=== PATIENT | female | born 1970 | race Caucasian/White ===

== ENCOUNTER 2017-10-23 08:32 | Observation (INO) | payer OTHER ==
[2017-10-23 09:27] LABS: ADD MAN DIFF? NO
[2017-10-23 09:30] LABS: BASOPHILS % 0.4 % (0.0-2.0); EOSINOPHILS # 0.2 10^3/ul (0.0-0.5); EOSINOPHILS % 3.2 % (0.0-7.0); HEMATOCRIT 40.2 % (37.0-47.0); HEMOGLOBIN 13.2 g/dl (12.0-16.0); LYMPHOCYTES # 2.2 10^3/ul (0.8-2.9); LYMPHOCYTES % 38.9 % (15.0-51.0); MEAN CORPUSCULAR HEMOGLOBIN 31.1 pg (29.0-33.0); MEAN CORPUSCULAR HGB CONC 32.8 g/dl (32.0-37.0); MEAN CORPUSCULAR VOLUME 94.8 fl (82.0-101.0); MEAN PLATELET VOLUME 9.5 fl (7.4-10.4); MONOCYTE # 0.3 10^3/ul (0.3-0.9); NEUTROPHIL # 2.9 10^3/ul (1.6-7.5); NEUTROPHILS % 51.3 % (39.0-77.0); PLATELET COUNT 337 10^3/UL (140-415); RED BLOOD COUNT 4.24 10^6/ul (4.20-5.40); RED CELL DISTRIBUTION WIDTH 12.4 % (11.5-14.5)
[2017-10-23 09:30] LABS: WHITE BLOOD COUNT 5.7 10^3/ul (4.8-10.8)
[2017-10-23 09:50] LABS: INR 0.86; PROTIME 11.8 Sec (11.9-14.9); PT RATIO 0.9
[2017-10-23 09:51] LABS: ALBUMIN 4.4 g/dl (3.3-4.9); ANION GAP 14 (8-16); CARBON DIOXIDE 27 mmol/L (21-31); CHLORIDE 106 mmol/L (97-110); GLUCOSE 108 mg/dl (70-220); PARTIAL THROMBOPLASTIN TIME 32.7 Sec (25.0-35.0); PHOSPHORUS 3.9 mg/dl (2.5-4.9)
[2017-10-23 09:54] LABS: BLOOD UREA NITROGEN 17 mg/dl (7-20); CALCIUM 9.3 mg/dl (8.4-10.2); CREATININE 0.75 mg/dl (0.44-1.00); POTASSIUM 4.1 mmol/L (3.5-5.1); SODIUM 143 mmol/L (135-144)
[2017-10-23] MEDS: LACTATED RINGER'S 1,000 ML IV* (10:00)
[2017-10-23] MEDS ORDERED: GLYCOPYRROLATE 0.4 MG INJ (10:47)
[2017-10-23] MEDS ORDERED: MIDAZOLAM 1 MG/ML 2 ML INJ (10:47)
[2017-10-23] MEDS ORDERED: ONDANSETRON 4 MG INJ (10:47)
[2017-10-23] MEDS ORDERED: NEOSTIGMINE 3 MG/3 ML SYRINGE (10:47)
[2017-10-23] MEDS ORDERED: CEFAZOLIN 1 GM INJ (10:47)
[2017-10-23] MEDS ORDERED: ROCURONIUM 50 MG INJ (10:47)
[2017-10-23] MEDS ORDERED: PROPOFOL 20 ML (10:47)
[2017-10-23] MEDS ORDERED: FENTAnyl 50 MCG/ML VIAL (10:47)
[2017-10-23] MEDS ORDERED: DEXAMETHASONE 4 MG/ML 1 ML INJ (10:48)
[2017-10-23] MEDS: CEFAZOLIN 2 GM/50 ML (PMX) 50 ML IVPB ×2 (11:08→18:30)
[2017-10-23] MEDS: LIDOCAINE 1%/EPI 30 ML INJ (11:22)
[2017-10-23] MEDS ORDERED: MIDAZOLAM 1 MG/ML 2 ML INJ IV (11:30)
[2017-10-23] MEDS ORDERED: hydrALAzine 20 MG INJ IV (11:30)
[2017-10-23] MEDS ORDERED: ONDANSETRON 4 MG INJ IV (11:30)
[2017-10-23] MEDS ORDERED: OXYCODONE/ACETAMINOPHEN (5/325) TAB PO ×2 (11:30)
[2017-10-23] MEDS ORDERED: FENTAnyl 50 MCG/ML VIAL IV ×2 (11:30)
[2017-10-23] MEDS ORDERED: MEPERIDINE 25 MG INJ IV (11:30)
[2017-10-23] MEDS ORDERED: ALBUTEROL 0.083% (NEB) 2.5 MG/3 ML AMP HHN (11:30)
[2017-10-23] MEDS ORDERED: DIPHENHYDRAMINE 50 MG INJ IV (11:30)
[2017-10-23] MEDS ORDERED: LABETALOL HCL 20MG INJ IV (11:30)
[2017-10-23] MEDS ORDERED: EPHEDrine SULFATE 50 MG/5 ML SYG IV (11:30)
[2017-10-23] MEDS ORDERED: TRIMETHOBENZAMIDE 100 MG/ML VIAL IM (11:30)
[2017-10-23] MEDS ORDERED: HYDROmorphONE (0.2 MG/ML) 10ML SYG IV ×2 (11:30)
[2017-10-23] MEDS ORDERED: IPRATROPIUM (NEB) 0.5 MG/2.5 ML AMP HHN (11:30)
[2017-10-23] MEDS ORDERED: SUGAMMADEX SODIUM 200 MG/2 ML VIAL IV (12:30)
[2017-10-23] MEDS: HYDROmorphONE (0.2 MG/ML) 10ML SYG IV (13:16)
[2017-10-23] MEDS: FENTAnyl 50 MCG/ML VIAL IV (13:16)
[2017-10-23] MEDS ORDERED: CEFAZOLIN 2 GM/50 ML (PMX) 50 ML IVPB (13:30)
[2017-10-23] MEDS: HYDROCODONE/APAP (5/325) TAB PO (22:55)
[2017-10-24] MEDS: CEFAZOLIN 2 GM/50 ML (PMX) 50 ML IVPB ×2 (03:30→12:16)
[2017-10-24 05:14] LABS: ADD MAN DIFF? NO
[2017-10-24 05:16] LABS: WHITE BLOOD COUNT 10.4 10^3/ul (4.8-10.8)
[2017-10-24 05:16] LABS: HEMATOCRIT 35.3 % (37.0-47.0); HEMOGLOBIN 11.7 g/dl (12.0-16.0); LYMPHOCYTES # 1.5 10^3/ul (0.8-2.9); LYMPHOCYTES % 14.7 % (15.0-51.0); MEAN CORPUSCULAR HEMOGLOBIN 30.9 pg (29.0-33.0); MEAN CORPUSCULAR HGB CONC 33.1 g/dl (32.0-37.0); MEAN CORPUSCULAR VOLUME 93.1 fl (82.0-101.0); MEAN PLATELET VOLUME 9.5 fl (7.4-10.4); MONOCYTE # 0.4 10^3/ul (0.3-0.9); MONOCYTES % 3.6 % (0.0-11.0); NEUTROPHIL # 8.4 10^3/ul (1.6-7.5); NEUTROPHILS % 81.4 % (39.0-77.0); PLATELET COUNT 326 10^3/UL (140-415); RED BLOOD COUNT 3.79 10^6/ul (4.20-5.40); RED CELL DISTRIBUTION WIDTH 12.4 % (11.5-14.5)
[2017-10-24] MEDS: LEVOTHYROXINE 25 MCG TAB PO (08:32)
[2017-10-24] MEDS: HYDROCODONE/APAP (5/325) TAB PO ×2 (08:32→16:44)
[2017-10-24] MEDS: BETHANECHOL 25 MG TAB PO ×2 (12:16→18:38)
[2017-10-24 14:28] LABS: ADD UMIC YES; UR ASCORBIC ACID NEGATIVE (NEGATIVE); UR BILIRUBIN (Dip) NEGATIVE (NEGATIVE); UR BLOOD (Dip) 1+ mg/dL (NEGATIVE); UR CLARITY CLEAR (CLEAR); UR COLOR COLORLESS (YELLOW); UR GLUCOSE (Dip) NEGATIVE (NEGATIVE); UR KETONES (Dip) NEGATIVE (NEGATIVE); UR LEUKOCYTE ESTERASE (Dip) NEGATIVE Leu/ul (NEGATIVE); UR NITRITE (Dip) NEGATIVE (NEGATIVE); UR RBC 0 /HPF (0-5); UR SPECIFIC GRAVITY (Dip) 1.002 (1.003-1.030); UR TOTAL PROTEIN (Dip) NEGATIVE (NEGATIVE); UR UROBILINOGEN (Dip) NEGATIVE (NEGATIVE); UR WBC 0 /HPF (0-5)
[2017-10-24] MEDS: SENNA TAB PO (18:38)
== END 2017-10-24 19:00 | disposition home or self-care (01) ==
LOC: SDS 08:32 → REC 13:46 → MS1 14:08
DX: N39.3 Stress incontinence (female) (male) (principal); N81.10 Cystocele, unspecified; E03.9 Hypothyroidism, unspecified
CPT/HCPCS: 57240; 80048; 80069; 81001; 84703; 85025; 85610; 85730; 87086; 93005